=== PATIENT | female | born 1960 | race Two or more races ===

== ENCOUNTER 2024-06-30 21:20 | Inpatient (IN) | payer OTHER ==
[~2024-06-30] VITALS: Ht 162.6 cm; Wt 87.1 kg
[2024-06-30] MEDS: IV NS 0.9% 1,000 ML BAG IV ONE (21:58)
[2024-06-30 22:05] LABS: BASOPHILS % (AUTO) 0.8 % (0.0-2.0); EOSINOPHILS # (AUTO) 0.1 K/uL (0.0-0.7); EOSINOPHILS % (AUTO) 1.5 % (0.0-6.0); HEMATOCRIT 43 % (33-45); LYMPHOCYTES # (AUTO) 1.2 K/uL (0.8-4.8); LYMPHOCYTES % (AUTO) 34.1 % (20.0-44.0); MEAN CORPUSCULAR HEMOGLOBIN 29 PG (26.0-33.0); MEAN CORPUSCULAR HGB CONC 35 g/dl (31.0-36.0); MEAN CORPUSCULAR VOLUME 84 fL (82-100); MONOCYTES # (AUTO) 0.3 K/uL (0.1-1.30); MONOCYTES % (AUTO) 9.3 % (2.0-12.0); NEUTROPHILS # (AUTO) 1.9 K/uL (1.8-8.9); NEUTROPHILS % (AUTO) 54.3 % (43.0-81.0); PLATELET COUNT (AUTO) 193 K/uL (150-450); RED BLOOD CELL COUNT(AUTO) 5.15 MIL/uL (4.0-5.2); RED CELL DISTRIBUTION WIDTH 14.8 % (11.5-15.0); WHITE BLOOD COUNT (AUTO) 3.6 K/uL (4.3-11.0)
[2024-06-30 22:23] LABS: INR 0.94 (0.91-1.10); PARTIAL THROMBOPLASTIN TIME 27.2 SEC (24.3-34.3)
[2024-06-30 22:25] LABS: ALBUMIN 3.9 g/dL (3.4-5.0); BILIRUBIN,DIRECT 0.1 mg/dL (0.0-0.2); BILIRUBIN,TOTAL 0.6 mg/dL (0.2-1.0); CALCIUM, SERUM 9.6 mg/dL (8.5-10.1); TOTAL PROTEIN, SERUM 7.8 g/dL (6.4-8.2)
[2024-06-30] MEDS ORDERED: INSULIN REGULAR, HUMAN 100 UNIT/ML 10 ML VIAL ONE (22:42)
[2024-06-30 22:43] LABS: APPEARANCE,URINE CLEAR (CLEAR); BILIRUBIN,URINE NEGATIVE (NEGATIVE); BLOOD, URINE NEGATIVE Ery/uL (NEGATIVE); COLOR,URINE YELLOW (YELLOW); KETONES,URINE NEGATIVE (NEGATIVE); LEUKOCYTE ESTERASE ,URINE NEGATIVE (NEGATIVE); NITRITE, URINE NEGATIVE (NEGATIVE); PROTEIN,URINE NEGATIVE (NEGATIVE); UGLUCOSE 3+ mg/dL (NEGATIVE); UROBILINOGEN,URINE 0.2 EU/dL (0.2)
[2024-06-30] MEDS: INSULIN REGULAR, HUMAN 100 UNIT/ML 10 ML VIAL SQ ONE (22:43)
[2024-06-30] MEDS ORDERED: hydrALAZINE HCL IV 20 MG VIAL IV ONE (23:00)
[2024-06-30 23:26] LABS: SQUAMOUS EPITHELIAL CELL,UR Moderate /HPF (None Seen)
[2024-06-30 23:27] LABS: ADD URINE CULTURE YES; BACTERIA,URINE Moderate /HPF (None Seen); RBC,URINE 0-2 /HPF (0-2)
[2024-07-01] MEDS ORDERED: hydrALAZINE HCL IV 20 MG VIAL IV PRN ×2 (00:30)
[2024-07-01] MEDS ORDERED: MORPHINE SULFATE INJ 2 MG/ML DISP.SYRIN ONE (00:58)
[2024-07-01] MEDS: MORPHINE SULFATE INJ 2 MG/ML DISP.SYRIN IV ONE (01:01)
[2024-07-01] MEDS: ACETAMINOPHEN ES 500 MG TABLET PO ONE (01:07)
[2024-07-01] MEDS ORDERED: ONDANSETRON HCL/PF 4 MG/2 ML VIAL IVP PRN (01:30)
[2024-07-01] MEDS ORDERED: ACETAMINOPHEN 325 MG TABLET PO PRN (01:30)
[2024-07-01] MEDS: BLOOD SUGAR DIAGNOSTIC 1 EACH STRIP IN SCH ×2 (05:32→22:27)
[2024-07-01] MEDS ORDERED: BLOOD SUGAR DIAGNOSTIC 1 EACH STRIP IN SCH ×2 (06:00)
[2024-07-01 06:03] LABS: ALBUMIN 3.1 g/dL (3.4-5.0); BILIRUBIN,TOTAL 0.5 mg/dL (0.2-1.0); CREATININE 0.7 mg/dL (0.6-1.3); MAGNESIUM 1.9 mg/dL (1.8-2.4); POTASSIUM 3.6 mmol/L (3.5-5.1); TOTAL PROTEIN, SERUM 6.2 g/dL (6.4-8.2)
[2024-07-01 06:12] LABS: THYROID STIMULATING HORMONE 2.95 uIU/mL (0.358-3.74)
[2024-07-01] MEDS: PANTOPRAZOLE 40 MG TABLET.DR PO SCH (07:30)
[2024-07-01] MEDS ORDERED: DOCUSATE SODIUM 100 MG CAPSULE PO SCH (09:00)
[2024-07-01] MEDS ORDERED: PANTOPRAZOLE 40 MG VIAL IV SCH (09:00)
[2024-07-01] MEDS: ACETAMINOPHEN 325 MG TABLET PO PRN (09:03)
[2024-07-01 10:05] VITALS: BP 146/74; TEMP 98.1; O2SAT 99
[2024-07-01] MEDS ORDERED: CYCL10TA9 PO (10:31)
[2024-07-01] MEDS ORDERED: ROSU20TA32 PO (10:31)
[2024-07-01] MEDS ORDERED: GABA300C PO (10:31)
[2024-07-01] MEDS ORDERED: LOSA50TA39 PO (10:31)
[2024-07-01] MEDS ORDERED: CHOL100040 PO (10:31)
[2024-07-01] MEDS ORDERED: GLIP1TAB6 PO (10:31)
[2024-07-01] MEDS ORDERED: INSU100V7 SQ (10:31)
[2024-07-01] MEDS ORDERED: *INSULIN REGULAR(HUMULIN R)HUM 100 UNIT/ML VIAL SQ PRN (13:00)
[2024-07-01] MEDS ORDERED: DEXTROSE 50%-WATER 50 ML DISP.SYRIN IV PRN ×2 (13:00→18:30)
[2024-07-01] MEDS: BLOOD SUGAR DIAGNOSTIC 1 EACH STRIP VI SCH (13:11)
[2024-07-01] MEDS: INSULIN REGULAR, HUMAN 100 UNIT/ML 3 ML VIAL SQ PRN (13:12)
[2024-07-01 16:00] VITALS: BP 115/73; TEMP 98.2; O2SAT 97
[2024-07-01] MEDS ORDERED: GABAPENTIN 300 MG CAPSULE PO PRN (17:30)
[2024-07-01] MEDS ORDERED: CYCLOBENZAPRINE 10 MG TABLET PO PRN (17:30)
[2024-07-01] MEDS: METFORMIN 500 MG TABLET PO SCH (17:57)
[2024-07-01] MEDS: glipiZIDE 5 MG TABLET PO SCH (17:57)
[2024-07-01 20:00] VITALS: BP 146/90; TEMP 97.5; O2SAT 99
[2024-07-01] MEDS: *INSULIN REGULAR(HUMULIN R)HUM 100 UNIT/ML VIAL SQ PRN (22:34)
[2024-07-01] MEDS: INSULIN GLARGINE, 100 UNIT/ML CARTRIDGE SQ SCH (22:35)
[2024-07-01] MEDS: ATORVASTATIN 40 MG TABLET PO SCH (22:35)
[2024-07-02 00:33] VITALS: BP 118/80; TEMP 97.5; O2SAT 98
[2024-07-02 04:00] VITALS: BP 132/74; TEMP 97; O2SAT 98
[2024-07-02] MEDS: INSULIN REGULAR, HUMAN 100 UNIT/ML 3 ML VIAL SQ PRN (07:13)
[2024-07-02 07:41] LABS: BASOPHILS % (AUTO) 0.5 % (0.0-2.0); EOSINOPHILS # (AUTO) 0.1 K/uL (0.0-0.7); HEMATOCRIT 40 % (33-45); HEMOGLOBIN 14.1 g/dL (11.5-14.8); LYMPHOCYTES # (AUTO) 1.4 K/uL (0.8-4.8); LYMPHOCYTES % (AUTO) 30.9 % (20.0-44.0); MEAN CORPUSCULAR HEMOGLOBIN 29 PG (26.0-33.0); MEAN CORPUSCULAR HGB CONC 35 g/dl (31.0-36.0); MEAN CORPUSCULAR VOLUME 84 fL (82-100); MONOCYTES # (AUTO) 0.4 K/uL (0.1-1.30); NEUTROPHILS # (AUTO) 2.6 K/uL (1.8-8.9); NEUTROPHILS % (AUTO) 57.6 % (43.0-81.0); PLATELET COUNT (AUTO) 192 K/uL (150-450); RED CELL DISTRIBUTION WIDTH 14.7 % (11.5-15.0); WHITE BLOOD COUNT (AUTO) 4.5 K/uL (4.3-11.0)
[2024-07-02 07:45] LABS: CALCIUM, SERUM 8.8 mg/dL (8.5-10.1); CREATININE 0.7 mg/dL (0.6-1.3); MAGNESIUM 1.7 mg/dL (1.8-2.4); PHOSPHORUS 3.8 mg/dL (2.5-4.9); POTASSIUM 3.9 mmol/L (3.5-5.1)
[2024-07-02 08:00] VITALS: BP 149/85; TEMP 98.2; O2SAT 99
[2024-07-02 08:07] VITALS: TEMP 97.7
[2024-07-02] MEDS: CHOLECALCIFEROL 1,000 UNIT TABLET (VIT D3) PO SCH (09:18)
[2024-07-02 09:19] VITALS: BP 149/85
[2024-07-02] MEDS: LOSARTAN POTASSIUM 50 MG TABLET PO SCH (09:19)
[2024-07-02] MEDS: MAGNESIUM OXIDE 400 MG TABLET PO ONE (11:10)
[2024-07-02] MEDS ORDERED: GLIP1TAB6 PO (11:11)
[2024-07-02] MEDS ORDERED: ATOR40TA PO (11:11)
[2024-07-02] MEDS ORDERED: INSU100V7 SQ (11:11)
== END 2024-07-02 14:39 | disposition home or self-care (01) | DRG 55 ==
LOC: ER 21:21 → TELE1 07-01 05:51 → MEDSG1 07-02 09:48
PROVIDERS: ATTEND Student in an Organized Health Care Education/Training Program
DX: S06.5XAA Traumatic subdural hemorrhage with loss of consciousness status unknown, initial encounter (principal); E44.1 Mild protein-calorie malnutrition; E87.1 Hypo-osmolality and hyponatremia; E11.65 Type 2 diabetes mellitus with hyperglycemia; W19.XXXA Unspecified fall, initial encounter; I10 Essential (primary) hypertension; Y92.9 Unspecified place or not applicable; R29.700 NIHSS score 0; Z91.199 Patient's noncompliance with other medical treatment and regimen due to unspecified reason; Z91.148 Patient's other noncompliance with medication regimen for other reason; Z79.4 Long term (current) use of insulin; Z79.84 Long term (current) use of oral hypoglycemic drugs; Z79.899 Other long term (current) drug therapy; E78.5 Hyperlipidemia, unspecified; E83.42 Hypomagnesemia; S06.6XAA Traumatic subarachnoid hemorrhage with loss of consciousness status unknown, initial encounter
CPT/HCPCS: 36415; 70450-TC; 71045-TC; 80048-TC; 80053-TC; 80061-TC; 80076-TC; 81001; 82962-TC; 83690-TC; 83735-TC; 84100-TC; 84443-TC; 84484-TC; 85025-TC; 85730-TC; 87086-TC; 92526; 92611-TC; 93307-TC; 97112-TC; 97116-TC; 97530-TC; 97535-TC; G0378; J1815; J2270